=== PATIENT | female | born 1985 | race Caucasian/White ===

== ENCOUNTER 2016-05-15 10:48 | Outpatient (CLI) | payer MEDICARE, MEDICAID ==
[2016-05-15] MEDS ORDERED: DIPHENHYDRAMINE HCL 50 MG/ML VIAL ONE (11:09)
[2016-05-15] MEDS ORDERED: IMMUNE GLOB,GAM CAPRYLATE(IGG) 40 GM, IMMUNE GLOB,GAM CAPRYLATE(IGG) 10 GM in CONTAINER... IV PRN (11:12)
[2016-05-15] MEDS ORDERED: DEXTROSE 5%-WATER 250 ML IV PRN (11:15)
[2016-05-15 14:30] VITALS: BP 122/80
== END 2016-05-15 14:00 | disposition home or self-care (01) ==
LOC: II 10:48 → 5TH 10:52 → II 14:00
PROVIDERS: ATTEND Internal Medicine
PROC: 3E043WK Introduction of Immunostimulator into Central Vein, Percutaneous (ICD-10-PCS; principal; 2016-05-15)
DX: D80.1 Nonfamilial hypogammaglobulinemia (principal)
CPT/HCPCS: 96365; 96366; J1561 ×2; J1200; A9270; J3490

== ENCOUNTER 2016-06-12 09:53 | Outpatient (CLI) | payer MEDICARE, MEDICAID ==
[~2016-06-12 09:53] MED LIST: CONTAINER EMPTY IV PRN; DEXTROSE 5%-WATER 250 ML IV PRN; DIPHENHYDRAMINE HCL 50 MG/ML VIAL IV PRN; IMMUNE GLOB GAM CAPRY IV PRN; IMMUNE GLOB GAM CAPRYLATE IV PRN; [UNRECOGNIZED DRUG - OTHER] IV PRN
[2016-06-12 10:09] VITALS: BP 123/69
== END 2016-06-12 13:17 | disposition home or self-care (01) ==
LOC: II 09:53 → 5TH 09:57 → II 13:17
PROVIDERS: ATTEND Internal Medicine
PROC: 3E043GC Introduction of Other Therapeutic Substance into Central Vein, Percutaneous Approach (ICD-10-PCS; principal; 2016-06-12)
PROC: 3E043GC Introduction of Other Therapeutic Substance into Central Vein, Percutaneous Approach (ICD-10-PCS; 2016-06-12)
DX: D80.1 Nonfamilial hypogammaglobulinemia (principal)
CPT/HCPCS: 96365; 96366; J1561 ×2; A9270; 96367; 96375; J3490

== ENCOUNTER 2016-07-10 08:16 | Outpatient (CLI) | payer MEDICARE, MEDICAID ==
[~2016-07-10 08:16] MED LIST changes: -CONTAINER EMPTY IV PRN; -DIPHENHYDRAMINE HCL 50 MG/ML VIAL IV PRN; -IMMUNE GLOB GAM CAPRY IV PRN; -IMMUNE GLOB GAM CAPRYLATE IV PRN; +IMMUNE GLOB,GAM CAPRYLATE(IGG) 40 GM, IMMUNE GLOB,GAM CAPRYLATE(IGG) 10 GM in CONTAINER... IV PRN; -[UNRECOGNIZED DRUG - OTHER] IV PRN
[2016-07-10 09:01] VITALS: BP 128/52
== END 2016-07-10 10:59 | disposition home or self-care (01) ==
LOC: II 08:16 → 5TH 08:17 → II 10:59
PROVIDERS: ATTEND Internal Medicine
PROC: 3E043GC Introduction of Other Therapeutic Substance into Central Vein, Percutaneous Approach (ICD-10-PCS; principal; 2016-07-10)
DX: D80.1 Nonfamilial hypogammaglobulinemia (principal)
CPT/HCPCS: 96365; 96366; J1561 ×2; A9270; J3490

== ENCOUNTER 2016-08-07 08:22 | Outpatient (CLI) | payer MEDICARE, MEDICAID ==
[2016-08-07 08:43] VITALS: BP 110/56
== END 2016-08-07 11:22 | disposition home or self-care (01) ==
LOC: II 08:22 → 5TH 08:22 → II 11:22
PROVIDERS: ATTEND Internal Medicine
PROC: 3E043WK Introduction of Immunostimulator into Central Vein, Percutaneous (ICD-10-PCS; principal; 2016-08-07)
DX: D80.1 Nonfamilial hypogammaglobulinemia (principal)
CPT/HCPCS: 96365; 96366; J1561 ×2; A9270; 96367; 96375; J3490

== ENCOUNTER 2016-09-04 08:14 | Outpatient (CLI) | payer MEDICARE, MEDICAID ==
[2016-09-04 09:26] VITALS: BP 122/72
== END 2016-09-04 11:46 | disposition home or self-care (01) ==
LOC: II 08:14 → 5TH 08:17 → II 11:46
PROVIDERS: ATTEND Internal Medicine
PROC: 3E043WK Introduction of Immunostimulator into Central Vein, Percutaneous (ICD-10-PCS; principal; 2016-09-04)
DX: D80.1 Nonfamilial hypogammaglobulinemia (principal)
CPT/HCPCS: 96365; 96366; J1561 ×2; A9270; J3490

== ENCOUNTER 2016-10-02 07:51 | Outpatient (CLI) | payer MEDICARE, MEDICAID ==
[2016-10-02 09:28] VITALS: BP 118/65
== END 2016-10-02 11:59 | disposition home or self-care (01) ==
LOC: II 07:51 → 5TH 07:52 → II 11:59
PROVIDERS: ATTEND Internal Medicine
PROC: 30243S1 Transfusion of Nonautologous Globulin into Central Vein, Percutaneous Approach (ICD-10-PCS; principal; 2016-10-02)
DX: D80.1 Nonfamilial hypogammaglobulinemia (principal)
CPT/HCPCS: 96365; 96366; 96374; J1561 ×2; A9270; J3490

== ENCOUNTER → 2016-10-13 | Outpatient (CLI) | payer MEDICARE, MEDICAID ==
--- NOTE | 2016-10-13 13:50 | RADIOLOGY REPORT (SQ) ---
EXAM DESCRIPTION: KUB COMPLETED DATE/TIME: 10/13/2016 1:14 pm REASON FOR STUDY: CALCULUS OF KIDNEY N20.0 CALCULUS OF KIDNEY COMPARISON: CT abdomen pelvis without contrast 03/02/2013 KUB 07/24/2013, 10/02/2015 NUMBER OF VIEWS: One view. TECHNIQUE: Supine radiographic image of the abdomen acquired. LIMITATIONS: None. FINDINGS: BOWEL GAS PATTERN: Normal bowel gas pattern. No dilated loops. Large amount of stool in t he descending colon and rectosigmoid CALCIFICATIONS: No suspicious calcifications. No calculi are identified over the expected location o f the kidneys, ureters or bladder SOFT TISSUES: No gross mass or suggestion of organomegaly. HARDWARE: Clips right upper quadrant post cholecystectomy BONES: 4 lumbar vertebral bodies, transitional thoracolumbar segment OTHER: No other significant finding. IMPRESSION: NO RADIOGRAPHIC EVIDENCE FOR ACUTE ABDOMINAL DISEASE. TECHNICAL DOCUMENTATION: JOB ID: [id number] [employer]- All Rights Reserved
== END ==
LOC: OD 12:12
PROVIDERS: ATTEND Urology
DX: N20.0 Calculus of kidney (principal)
CPT/HCPCS: 74000

== ENCOUNTER 2016-10-30 08:08 | Outpatient (CLI) | payer MEDICARE, MEDICAID ==
[2016-10-30 10:27] VITALS: BP 119/61
== END 2016-10-30 11:50 | disposition home or self-care (01) ==
LOC: II 08:08 → 5TH 08:08 → II 11:50
PROVIDERS: ATTEND Internal Medicine
PROC: 30243S1 Transfusion of Nonautologous Globulin into Central Vein, Percutaneous Approach (ICD-10-PCS; principal; 2016-10-30)
DX: D80.1 Nonfamilial hypogammaglobulinemia (principal)
CPT/HCPCS: 96367; 96375; J1561 ×2; A9270; 96365; 96366; J3490

== ENCOUNTER 2016-11-27 07:51 | Outpatient (CLI) | payer MEDICARE, MEDICAID ==
[~2016-11-27 07:51] MED LIST changes: +CONTAINER EMPTY IV PRN; +IMMUNE GLOB GAM CAPRY IV PRN; +IMMUNE GLOB GAM CAPRYLATE IV PRN; -IMMUNE GLOB,GAM CAPRYLATE(IGG) 40 GM, IMMUNE GLOB,GAM CAPRYLATE(IGG) 10 GM in CONTAINER... IV PRN; +[UNRECOGNIZED DRUG - OTHER] IV PRN
[2016-11-27 08:34] VITALS: BP 113/60
== END 2016-11-27 11:07 | disposition home or self-care (01) ==
LOC: II 07:51 → 5TH 07:53 → II 11:07
PROVIDERS: ATTEND Internal Medicine
PROC: 30243S1 Transfusion of Nonautologous Globulin into Central Vein, Percutaneous Approach (ICD-10-PCS; principal; 2016-11-27)
DX: D80.1 Nonfamilial hypogammaglobulinemia (principal)
CPT/HCPCS: 96367; 96375; J1561 ×2; A9270; 96365; 96366; J3490

== ENCOUNTER 2016-12-25 08:28 | Outpatient (CLI) | payer MEDICARE, MEDICAID ==
[~2016-12-25 08:28] MED LIST changes: -CONTAINER EMPTY IV PRN; -IMMUNE GLOB GAM CAPRY IV PRN; -IMMUNE GLOB GAM CAPRYLATE IV PRN; +IMMUNE GLOB,GAM CAPRYLATE(IGG) 40 GM, IMMUNE GLOB,GAM CAPRYLATE(IGG) 10 GM in CONTAINER... IV PRN; -[UNRECOGNIZED DRUG - OTHER] IV PRN
[2016-12-25 08:52] VITALS: BP 112/66
== END 2016-12-25 11:29 | disposition home or self-care (01) ==
LOC: II 08:28 → 5TH 08:51 → II 11:29
PROVIDERS: ATTEND Internal Medicine
PROC: 30243S1 Transfusion of Nonautologous Globulin into Central Vein, Percutaneous Approach (ICD-10-PCS; principal; 2016-12-25)
DX: D80.1 Nonfamilial hypogammaglobulinemia (principal)
CPT/HCPCS: 96365; 96366; 96523; J1561 ×2; A9270; J3490

== ENCOUNTER 2017-01-22 08:36 | Outpatient (CLI) | payer MEDICARE, MEDICAID ==
[2017-01-22] MEDS ORDERED: DEXTROSE 5%-WATER 250 ML IV PRN (08:47)
[2017-01-22] MEDS ORDERED: IMMUNE GLOB GAM CAPRY IV PRN ×3 (08:56)
[2017-01-22] MEDS ORDERED: CONTAINER EMPTY IV PRN ×3 (08:56)
[2017-01-22] MEDS ORDERED: IMMUNE GLOB GAM CAPRYLATE IV PRN ×3 (08:56)
[2017-01-22] MEDS ORDERED: [UNRECOGNIZED DRUG - OTHER] IV PRN ×3 (08:56)
[2017-01-22 09:01] VITALS: BP 118/65
== END 2017-01-22 12:16 | disposition home or self-care (01) ==
LOC: II 08:36 → 5TH 08:40 → II 12:16
PROVIDERS: ATTEND Internal Medicine
PROC: 30243S1 Transfusion of Nonautologous Globulin into Central Vein, Percutaneous Approach (ICD-10-PCS; principal; 2017-01-22)
DX: D80.1 Nonfamilial hypogammaglobulinemia (principal)
CPT/HCPCS: 96367; 96375; J1561 ×2; A9270; 96365; 96366; J3490

== ENCOUNTER → 2017-06-07 | Outpatient (CLI) | payer MEDICARE, MEDICAID ==
--- NOTE | 2017-06-07 15:24 | RADIOLOGY REPORT (SQ) ---
EXAM DESCRIPTION: U/S RETROPERITON (RENAL/AORTA) COMPLETED DATE/TIME: 06/07/2017 11:15 am REASON FOR STUDY: KIDNEY STONE (N20) N20.0 CALCULUS OF KIDNEY COMPARISON: None. TECHNIQUE: Dynamic and static grayscale images acquired of the kidneys and bladder and recorded on P ACS. Additional selected color Doppler and spectral images recorded. LIMITATIONS: None. FINDINGS: RIGHT KIDNEY: Normal size. Normal echogenicity. No solid or suspicious masses. No hydronep hrosis. No calcifications. LEFT KIDNEY: Normal size. Normal echogenicity. No solid or suspicious masses. No hydronephrosis. No calcifications. BLADDER: No masses. OTHER FINDINGS: No other significant finding. IMPRESSION: NORMAL RENAL AND BLADDER ULTRASOUND. TECHNICAL DOCUMENTATION: JOB ID: [id number] [employer]- All Rights Reserved
== END ==
LOC: RAD 09:49
PROVIDERS: ATTEND Nurse Practitioner
DX: N20.0 Calculus of kidney (principal)
CPT/HCPCS: 76770

== ENCOUNTER → 2017-06-16 | Outpatient (CLI) | payer MEDICARE, MEDICAID ==
--- NOTE | 2017-06-16 12:30 | RADIOLOGY REPORT (SQ) ---
EXAM DESCRIPTION: T SPINE AP/LAT; LUMBAR SPINE COMPLETE COMPLETED DATE/TIME: 06/16/2017 11:50 am REASON FOR STUDY: DORSALGIA, UNSPECIFIED COMPARISON: See below. FINDINGS: Two views thoracic spine: 2013 comparison. Normal alignment. No fracture or bone lesion . Minimal degenerative disc spurring. Discs otherwise relatively well preserved. No soft tissue pa thology. There is right IJ port in place to the superior vena cava. Five views lumbosacral spine including obliques: Subtle scoliosis, otherwise normal alignment. No f racture or bone lesion. Relatively preserved discs without significant osteophytes. Posterior eleme nts intact. IMPRESSION: Mild spondylosis. No fracture or bone lesion or significant spinal malalignment. TECHNICAL DOCUMENTATION: JOB ID: [id number]
== END ==
LOC: OD 11:19
PROVIDERS: ATTEND Nurse Practitioner
DX: M54.9 Dorsalgia, unspecified (principal)
CPT/HCPCS: 72070; 72110

== ENCOUNTER → 2017-10-26 | Outpatient (CLI) | payer MEDICARE, MEDICAID ==
--- NOTE | 2017-10-26 11:49 | RADIOLOGY REPORT (SQ) ---
EXAM DESCRIPTION: CT ABD/PELVIS NO ORAL OR IV COMPLETED DATE/TIME: 10/26/2017 10:20 am REASON FOR STUDY: FLANK PAIN (R10.9) R10.9 UNSPECIFIED ABDOMINAL PAIN COMPARISON: CT abdomen pelvis 03/12/2013 Bilateral renal ultrasound 06/07/2017 TECHNIQUE: CT scan of the abdomen and pelvis performed without intravenous or oral contrast. Images reviewed with lung, soft tissue, and bone windows. Reconstructed coronal and sagittal MPR images revi ewed. All images stored on PACS. All CT scanners at this facility use dose modulation, iterative reconstruction, and/or weight based d osing when appropriate to reduce radiation dose to as low as reasonably achievable (ALARA). [facility]: Dose Right [facility]: CareDose [facility]: Dose Right [facility]: Teradose 4D [facility]: FastFig RADIATION DOSE: CT Rad equipment meets quality standard of care and radiation dose reduction techniq ues were employed. CTDIvol: 17.0 mGy. DLP: 939 mGy-cm.mGy. LIMITATIONS: None. FINDINGS: LOWER CHEST: No significant findings. No nodules or infiltrates. NON-CONTRASTED LIVER, SPLEEN, ADRENALS: Evaluation limited by lack of IV contrast. No identified sign ificant masses. PANCREAS: No masses. No peripancreatic inflammatory changes. GALLBLADDER: Post cholecystectomy RIGHT KIDNEY AND URETER: No suspicious masses. Assessment limited by lack of IV contrast. No signif icant calcifications. No hydronephrosis or hydroureter. LEFT KIDNEY AND URETER: No suspicious masses. Assessment limited by lack of IV contrast. Left upper pole tiny calculus seen on 03/12/2013 is no longer identified. No left-sided intrarenal stones. No left ureteral calculi. No hydronephrosis or hydroureter. AORTA AND RETROPERITONEUM: No aneurysm. No retroperitoneal masses or adenopathy. BOWEL AND PERITONEAL CAVITY: No obvious masses or inflammatory changes. No free fluid. APPENDIX: Normal. PELVIS, BLADDER, AND ABDOMINAL WALL:No abnormal masses. No free fluid. Bladder normal. BONES: No significant findings. OTHER: No other significant finding. IMPRESSION: NO SIGNIFICANT OR ACUTE PROCESS IN THE ABDOMEN OR PELVIS. COMMENT: Quality ID # [id number]: Final reports with documentation of one or more dose reduction techniques (e.g., Automated exposure control, adjustment of the mA and/or kV according to patient size, use of iterative reconstruction technique) TECHNICAL DOCUMENTATION: JOB ID: [id number] [employer]- All Rights Reserved Reading location - IP/workstation name: [email or web address]
== END ==
LOC: RAD 09:59
PROVIDERS: ATTEND Nurse Practitioner Family
DX: R10.9 Unspecified abdominal pain (principal)
CPT/HCPCS: 74176

== ENCOUNTER → 2018-08-02 | Outpatient (CLI) | payer MEDICARE, MEDICAID ==
--- NOTE | 2018-08-02 10:24 | RADIOLOGY REPORT (SQ) ---
EXAM DESCRIPTION: LUMBAR SPINE COMPLETE COMPLETED DATE/TIME: 08/02/2018 9:59 am REASON FOR STUDY: RADICULOPATHY, LUMBAR REGION M25.561 PAIN IN RIGHT KNEE M54.16 RADICULOPATHY, RADHA MBAR REGION COMPARISON: 05/05/2013 CT abdomen pelvis 11/20/2017 NUMBER OF VIEWS: Five views including obliques. TECHNIQUE: AP, lateral, oblique, and sacral radiographic images acquired of the lumbar spine. LIMITATIONS: None. FINDINGS: MINERALIZATION: Normal. SEGMENTATION: Normal. No transitional anatomy. ALIGNMENT: Normal. VERTEBRAE: Maintained height. No fracture or worrisome bone lesion. DISCS: Disc space loss of height at L5-S1 POSTERIOR ELEMENTS: Pedicles and facets are intact. No pars defect or posterior arch defects. Mild bilateral facet arthropathy at L5-S1 HARDWARE: None in the spine. Clips right upper quadrant post cholecystectomy PARASPINAL SOFT TISSUES: Normal. PELVIS: SI joints intact. OTHER: No other significant finding. IMPRESSION: Degenerative disc disease and facet arthropathy at L5-S1 TECHNICAL DOCUMENTATION: JOB ID: [id number] [employer]237[employer]- All Rights Reserved Reading location - IP/workstation name: [email or web address]
--- NOTE | 2018-08-02 10:27 | RADIOLOGY REPORT (SQ) ---
EXAM DESCRIPTION: KNEE RIGHT 3 VIEWS COMPLETED DATE/TIME: 08/02/2018 9:59 am REASON FOR STUDY: PAIN IN RIGHT KNEE M25.561 PAIN IN RIGHT KNEE M54.16 RADICULOPATHY, LUMBAR REGIO N COMPARISON: None. NUMBER OF VIEWS: Three views. TECHNIQUE: AP, lateral, and sunrise patella radiographic images acquired of the right knee. LIMITATIONS: None. FINDINGS: MINERALIZATION: Normal. BONES: No acute fracture or dislocation. No worrisome bone lesions. JOINT: Trace suprapatellar knee joint effusion. Moderate lateral patellofemoral compartment joint sp sheree narrowing and bony spurring. Mild medial and lateral knee compartment joint space narrowing and bony spurring SOFT TISSUES: No soft tissue swelling. No radio-opaque foreign body. OTHER: No other significant finding. IMPRESSION: Tricompartment osteoarthritis right knee. No acute fracture TECHNICAL DOCUMENTATION: JOB ID: [id number] [employer]- All Rights Reserved Reading location - IP/workstation name: [email or web address]
== END ==
LOC: OD 09:27
PROVIDERS: ATTEND Nurse Practitioner Family
DX: M25.561 Pain in right knee (principal); M54.16 Radiculopathy, lumbar region; M17.11 Unilateral primary osteoarthritis, right knee; M51.37 Other intervertebral disc degeneration, lumbosacral region
CPT/HCPCS: 72110